=== PATIENT | female | born 1960 ===

== ENCOUNTER 2024-11-14 14:39 | Emergency (ER) | payer BC ==
[~2024-11-14] VITALS: Ht 144.8 cm; Wt 65.8 kg
[~2024-11-14 14:39] MED LIST: ENAL20 PO; GLIP5 PO; HYDACE5 PO; METF500 PO; RXHYD5325 PO; SITA50T2 PO
[2024-11-14 14:52] VITALS: BP 134/71
[2024-11-14] MEDS ORDERED: CORTISONE60 GM TOP (15:02)
[2024-11-14] MEDS ORDERED: ALLEGRA ALLERG180 MG PO (15:02)
== END 2024-11-14 15:09 | disposition home or self-care (01) ==
LOC: ER 14:39
DX: L23.7 Allergic contact dermatitis due to plants, except food (principal)
CPT/HCPCS: 99282